=== PATIENT | male | born 1950 | race Caucasian/White ===

== ENCOUNTER 2022-09-04 07:57 | Outpatient (CLI) | payer MEDICARE, SELFPAY ==
[2022-09-04 20:10] LABS: Basophils Percent Auto 0.5 % (0.2-1.2); Eosinophils Absolute Auto 0.1 K/mm3 (0-0.3); Eosinophils Percent Auto 1.5 % (0-4.4); Hematocrit 43.9 % (42.0-52.0); Hemoglobin 14.8 g/dL (14.0-18.0); Immature Granulocyte Absolute 0.02 K/mm3 (0.00-0.031); Immature Granulocyte Percent A 0.3 % (0-0.5); Lymphocytes Absolute Auto 3.22 K/mm3 (0.9-3.2); Lymphocytes Percent Auto 41.4 % (18.3-44.2); Mean Corpuscular HGB Conc 33.7 g/dl (32-36); Mean Corpuscular Hemoglobin 34.2 pg (26-34); Mean Corpuscular Volume 101.4 fl (80-100); Mean Platelet Volume 9.6 fl (7.4-10.4); Monocytes Absolute Auto 0.7 K/mm3 (0.1-0.6); Neutrophils Absolute Auto 3.7 K/mm3 (1.3-6.7); Neutrophils Percent Auto 47.3 % (45.5-73.1); Platelet Count Result 221 k/mm3 (150-375); Red Blood Count 4.33 M/mm3 (4.6-6.20); Red Cell Distribution Width 12.8 % (11.5-14.5); White Blood Count 7.8 K/mm3 (4.5-10.0)
[2022-09-04 20:46] LABS: Alanine Aminotransferase 52 U/L (6-50); Albumin Level 4.4 g/dL (3.5-5.1); Alkaline Phosphatase 57 U/L (38-126); Anion Gap 8 mmol/L (8-16); Aspartate Amino Transferase 50 U/L (17-59); Bilirubin,Total 0.7 mg/dL (0.2-1.3); Blood Urea Nitrogen 17 mg/dL (9-20); Calcium 9.3 mg/dL (8.4-10.2); Carbon Dioxide 29 mmol/L (22-30); Chloride 103 mmol/L (98-107); Cholesterol 189 mg/dL (0-200); Estimated Glomerular Filt Rate > 60; Glucose 120 mg/dL (65-110); HDL Direct 36 mg/dL; Potassium 4.6 mmol/L (3.4-5.0); Sodium 140 mmol/L (137-145); Triglycerides 294 mg/dL (<150); Uric Acid 4.8 mg/dL (3.5-8.5)
[2022-09-04 20:57] LABS: LDL Cholesterol Direct 97 mg/dL
[2022-09-04 21:14] LABS: Prostate Specific Antigen 7.9 ng/mL (< OR = 4.0)
[2022-09-04 22:35] LABS: Hemoglobin A1C 6.4 % (<5.7)
== END 2022-09-04 07:58 | disposition home or self-care (01) ==
LOC: ANHGOSHLAB 07:58
PROVIDERS: PCP Family Medicine; Visit Provider Family Medicine
DX: I25.10 Atherosclerotic heart disease of native coronary artery without angina pectoris (principal); R73.03 Prediabetes; M10.9 Gout, unspecified; Z12.5 Encounter for screening for malignant neoplasm of prostate
CPT/HCPCS: 36415; 80053; 80061; 83036; 84153; 84550; 85025; G0103

== ENCOUNTER 2023-01-14 01:55 | Emergency (ER) | payer MEDICARE, SELFPAY | END 2023-01-14 04:03 | disposition home or self-care (01) | LOC: ANHED 19:02 | PROVIDERS: Emergency Provider Emergency Medicine; PCP Family Medicine | DX: L76.22 Postprocedural hemorrhage of skin and subcutaneous tissue following other procedure (principal); C44.41 Basal cell carcinoma of skin of scalp and neck | CPT/HCPCS: 12001; 99282 ==

== ENCOUNTER → 2023-03-04 10:04 | Outpatient (CLI) | payer MEDICARE, SELFPAY ==
--- NOTE | ~2023-03-04 | XR_ITS ---
Right Knee Technique: AP, lateral, and sunrise views were obtained. Clinical History: Pain Findings: No fracture or dislocation is seen. Osseous alignment is anatomic. Minimal degenerative spu rring noted. Soft tissues are unremarkable. No joint effusion is seen. Impression: Minimal degenerative changes. Reviewed, dictated and finalized at [facility]. Impression: Minimal degenerative changes.
== END ==
PROVIDERS: PCP Family Medicine; Visit Provider Physician Assistant
DX: M25.561 Pain in right knee (principal); M25.562 Pain in left knee
CPT/HCPCS: 73562

== ENCOUNTER 2023-09-03 06:17 | Day surgery (SDC) | payer MEDICARE, SELFPAY ==
[2023-08-13 09:23] VITALS: BMI 37.0
[2023-08-17 13:53] VITALS: BMI 49.1
--- NOTE | 2023-09-02 10:48 | WPDANESEPPF ---
Anes - Initial Pre Proc Eval Procedure: Operation Date: 09/03/23 09:30 Proposed Procedures p Colonoscopy - Rufus Silva MD Date/Time: 09/02/23 10:48 Surgeon: Rufus Silva MD Pre Op Diagnosis: History of Colon Polyps Patient Data Age: 72 Gender: M Height: 1.75 m Weight: 151 kg Allergies Allergy/AdvReac Type Severity Reaction Status Date / Time No Known Allergies Allergy Verified 09/03/23 08:10 Home Medications Medication Instructions Recorded Confirmed Type latanoprost 0.005 % eye drops 1 drop ophthalmic (eye) DAILY 08/18/19 09/03/23 History sildenafil 100 mg tablet 100 mg PO DAILY PRN sexual 09/02/22 09/03/23 Rx activity #90 tabs diclofenac sodium 75 mg 75 mg PO BID PRN pain #60 tabs 03/03/23 09/03/23 Rx tablet,delayed release finasteride 5 mg tablet 5 mg PO DAILY 06/19/23 09/03/23 History losartan 100 mg tablet 100 mg PO DAILY #100 tabs 07/14/23 09/03/23 Rx simvastatin 20 mg tablet (Zocor) 20 mg PO DAILY #90 tabs 07/17/23 09/03/23 Rx sodium,potassium,mag sulfates 17.5 See Rx Instructions PO .COMPLEX 08/13/23 09/03/23 Rx gram-3.13 gram-1.6 gram oral soln #354 mL (Suprep Bowel Prep Kit) amlodipine 5 mg tablet (Norvasc) 5 mg PO DAILY 08/17/23 09/03/23 History colchicine 0.6 mg tablet 0.6 mg PO DAILY 08/17/23 09/03/23 History metformin 500 mg tablet,extended 500 mg PO DAILY 08/17/23 09/03/23 History release 24hr (osmotic) Patient hx anesthesia problems: none Family hx anesthesia problems: none Results Review: All pre-operative results and documents have been reviewed as part of the pre-operative evaluation. FORMERLY [facility], 1928–1983 Past Medical History Medical History Atherosclerosis of [place] coronary artery of [place] heart without angina pectoris ct 10.12.18: dense coronary arteries 1.8.19 stress treadmill normal Cataract Dyslipidemia Hyperglycemia Hypertension, essential, benign Surgical History Surgical History History of removal of skin mole Family History Family History Mother Family history of lung cancer Patient's mother is Diabetes mellitus Father Family history of congestive heart failure Hypertension Sibling Hypertension Other Family history of cardiovascular disease Family history of hypercholesterolemia Social History Social History Smoking status: Never smoker Alcohol intake: current Drinks per week: 3 Substance use type: does not use Lack of Transportation: No Lack of Food: Never True Current Housing: I Have Housing Concerned About Future Housing: No Difficulty Paying Gas/Electric Bills: No Difficulty Paying for Meds: No Currently Unemployed: No Education: Associate Degree Difficulty w/ Childcare or Family Care: No Living arrangements: with family Spiritual care concerns: No Anes - Eval Final PreProcedure Day of Procedure 09/02/23 10:48 Patient weight: obese Heart: regular rate and rhythm Lungs: clear to auscultation Airway: Mallampati scale class II Neurological: alert and oriented Last oral intake: >/= 8 hours ASA classification: III Emergent: no Anesthetic plan: proceed Anesthesia type and monitoring: general GIVS and standard monitoring Results Review: All pre-operative results and documents have been reviewed as part of the pre-operative evaluation. Informed Consent: The patient's anesthetic plan and its attendant risks and benefits were discussed with the patient/family/POA. Questions were solicited and answers provided to the satisfaction of the patient/family/POA.
[2023-09-03 08:11] VITALS: BP 165/93; PULSE 64; RESP 20; TEMP 36.3; O2SAT 98
--- NOTE | 2023-09-03 08:21 | PM.HPGS ---
History of Present Illness History of Present Illness Consent: Risks, benefits, and alternatives have been discussed and questions answered. Patient agrees to proceed with procedure. Chief complaint: History of Colon Polyps Narrative: Porfirio Rizo is a 72 year old male presents for screening colonoscopy. Patient's current weight appetite and bowel movements are normal. Patient denies abdominal pain. He has had no bleeding. Family history is noncontributory. Is found to have a tubular adenoma at time of previous colonoscopy in 2018. Family history noncontributory. Review of Systems Review of Systems: Review of systems noncontributory. [facility] Past Medical History Medical History Atherosclerosis of [place] coronary artery of [place] heart without angina pectoris ct 10.12.18: dense coronary arteries 1.8.19 stress treadmill normal Cataract Dyslipidemia Hyperglycemia Hypertension, essential, benign Surgical History Surgical History History of removal of skin mole Family History Family History Mother Family history of lung cancer Patient's mother is Diabetes mellitus Father Family history of congestive heart failure Hypertension Sibling Hypertension Other Family history of cardiovascular disease Family history of hypercholesterolemia Social History Social History Smoking status: Never smoker Alcohol intake: current Drinks per week: 3 Substance use type: does not use Lack of Transportation: No Lack of Food: Never True Current Housing: I Have Housing Concerned About Future Housing: No Difficulty Paying Gas/Electric Bills: No Difficulty Paying for Meds: No Currently Unemployed: No Education: Associate Degree Difficulty w/ Childcare or Family Care: No Living arrangements: with family Spiritual care concerns: No Meds Home Medications and Allergies Home Medications Medication Instructions Recorded Confirmed Type latanoprost 0.005 % eye drops 1 drop ophthalmic (eye) DAILY 08/18/19 09/03/23 History sildenafil 100 mg tablet 100 mg PO DAILY PRN sexual 09/02/22 09/03/23 Rx activity #90 tabs diclofenac sodium 75 mg 75 mg PO BID PRN pain #60 tabs 03/03/23 09/03/23 Rx tablet,delayed release finasteride 5 mg tablet 5 mg PO DAILY 06/19/23 09/03/23 History losartan 100 mg tablet 100 mg PO DAILY #100 tabs 07/14/23 09/03/23 Rx simvastatin 20 mg tablet (Zocor) 20 mg PO DAILY #90 tabs 07/17/23 09/03/23 Rx sodium,potassium,mag sulfates 17.5 See Rx Instructions PO .COMPLEX 08/13/23 09/03/23 Rx gram-3.13 gram-1.6 gram oral soln #354 mL (Suprep Bowel Prep Kit) amlodipine 5 mg tablet (Norvasc) 5 mg PO DAILY 08/17/23 09/03/23 History colchicine 0.6 mg tablet 0.6 mg PO DAILY 08/17/23 09/03/23 History metformin 500 mg tablet,extended 500 mg PO DAILY 08/17/23 09/03/23 History release 24hr (osmotic) Allergies Allergy/AdvReac Type Severity Reaction Status Date / Time No Known Allergies Allergy Verified 09/03/23 08:10 Vital Signs Vital Signs - 24 hr 09/03/23 08:11 Temperature 97.3 F L Pulse Rate 64 Respiratory Rate 20 Blood Pressure 165/93 H Pulse Oximetry 98 Oxygen Delivery Room Air Exam Narrative: Physical exam reveals patient to be alert. Vital signs stable. HEENT is unremarkable. Patient is anicteric. Lungs are clear to auscultation and percussion heart is without murmur or extra sounds. Abdomen bowel sounds are present soft nontender with no organomegaly. Digital external rectal exam is normal. Assessment and Plan Assessment and plan (1) Personal history of colonic polyps: Code(s): Z86.010 - Personal history of colonic polyps Status: Acute Assessment and Plan: Patient had
[2023-09-03 08:31] LABS: Glucose Point of Care 140 mg/dl (65-105)
[2023-09-03] MEDS: LACTATED RINGERS 1,000 ML 150 ML IV CONT (08:31)
[2023-09-03 09:50] VITALS: BP 127/79; PULSE 66; RESP 16; O2SAT 95
[2023-09-03 10:00] VITALS: BP 137/68; PULSE 63; RESP 16; O2SAT 99
[2023-09-03 10:10] VITALS: BP 134/72; PULSE 63; RESP 16; O2SAT 99
--- NOTE | 2023-09-03 11:35 | WPDANESPN ---
Anes - Prog Note Post-Op Date/Time: 09/03/23 11:35 Cardiovascular status: normal Respiratory status: normal Airway patency: baseline Mental status: baseline Post-Op hydration status: normal Vital Signs: Last Vital Signs Temp 36.3 C L 09/03/23 08:11 Pulse 63 09/03/23 10:10 Resp 16 09/03/23 10:10 BP 134/72 09/03/23 10:10 Pulse Ox 99 09/03/23 10:10 O2 Del Method Room Air 09/03/23 10:10 Pain Score (VAS): 0 I/O: Intake & Output 09/02/23 09/03/23 09/03/23 23:59 07:59 15:59 Intake Total 700 Balance 700 09/03/23 08:28 POC Capillary Glucose 140 H Post-procedural complaints: none Patient Feedback: Patient satisfied with anesthetic care. Other Findings: Patient vital signs back to baseline. Patient denies nausea and vomiting. Patient's pain under control. Patient OK for discharge.
== END 2023-09-03 10:20 | disposition home or self-care (01) ==
PROVIDERS: PCP Family Medicine; Visit Provider Internal Medicine Gastroenterology
PROC: 0DJD8ZZ Inspection of Lower Intestinal Tract, Via Natural or Artificial Opening Endoscopic (ICD-10-PCS; CPT 45378; principal; 2023-09-03 09:30)
DX: Z86.010 Personal history of colon polyps (principal); K64.8 Other hemorrhoids
CPT/HCPCS: 45378

== ENCOUNTER 2023-12-08 10:18 | Outpatient (CLI) | payer MEDICARE, SELFPAY ==
[2023-12-08 13:58] LABS: Basophils Percent Auto 0.5 % (0.2-1.2); Eosinophils Absolute Auto 0.1 K/mm3 (0-0.3); Eosinophils Percent Auto 1.2 % (0-4.4); Hematocrit 42.9 % (42.0-52.0); Hemoglobin 14.6 g/dL (14.0-18.0); Immature Granulocyte Absolute 0.01 K/mm3 (0.00-0.031); Immature Granulocyte Percent A 0.1 % (0-0.5); Lymphocytes Absolute Auto 3.32 K/mm3 (0.9-3.2); Lymphocytes Percent Auto 40.1 % (18.3-44.2); Mean Platelet Volume 9.9 fl (7.4-10.4); Monocytes Absolute Auto 0.8 K/mm3 (0.1-0.6); Monocytes Percent Auto 9.2 % (2.6-8.5); Neutrophils Absolute Auto 4.1 K/mm3 (1.3-6.7); Neutrophils Percent Auto 48.9 % (45.5-73.1); Platelet Count Result 228 k/mm3 (150-375); Red Blood Count 4.29 M/mm3 (4.6-6.20); Red Cell Distribution Width 12.2 % (11.5-14.5); White Blood Count 8.3 K/mm3 (4.5-10.0)
[2023-12-08 14:05] LABS: Alanine Aminotransferase 36 U/L (6-50); Albumin Level 4.9 g/dL (3.5-5.1); Alkaline Phosphatase 52 U/L (38-126); Anion Gap 9 mmol/L (4-12); Aspartate Amino Transferase 64 U/L (17-59); Bilirubin,Total 0.8 mg/dL (0.2-1.3); Blood Urea Nitrogen 17 mg/dL (9-20); Calcium 9.9 mg/dL (8.4-10.2); Carbon Dioxide 25 mmol/L (22-30); Chloride 107 mmol/L (98-107); Cholesterol 182 mg/dL (0-200); Estimated Glomerular Filt Rate > 60; Glucose 114 mg/dL (65-110); HDL Direct 44 mg/dL; Potassium 4.5 mmol/L (3.4-5.0); Sodium 141 mmol/L (137-145); Triglycerides 189 mg/dL (<150); Uric Acid 7.3 mg/dL (3.5-8.5)
[2023-12-08 14:17] LABS: LDL Cholesterol Direct 116 mg/dL
[2023-12-08 14:21] LABS: Creatinine Urine 113.4 mg/dL
[2023-12-08 14:34] LABS: MALB Creatinine Ratio 12.9 mg/g (0-30); Microalbumin Urine Random 14.6 mg/L (0-16.7)
[2023-12-08 15:11] LABS: Folic Acid > 20.0 ng/mL (2.76->20)
[2023-12-08 15:24] LABS: Hemoglobin A1C 6.4 % (<5.7)
[2023-12-08 15:26] LABS: Hepatitis C Virus Antibody Negative (Negative)
== END 2023-12-08 10:19 | disposition home or self-care (01) ==
PROVIDERS: PCP Family Medicine; Visit Provider Physician Assistant
DX: E78.2 Mixed hyperlipidemia (principal); I10 Essential (primary) hypertension; M10.9 Gout, unspecified; E88.810 Metabolic syndrome; E66.9 Obesity, unspecified; Z79.899 Other long term (current) drug therapy; Z11.59 Encounter for screening for other viral diseases
CPT/HCPCS: 36415; 80053; 80061; 82043; 82607; 82746; 83036; 84443; 84550; 85025; 86803

== ENCOUNTER 2025-02-02 08:12 | Outpatient (CLI) | payer MEDICARE, SELFPAY ==
--- OUTSIDE RECORDS SUMMARY | 2025-02-02 08:16 | XMS_ITS | Continuity of Care Document ---
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 Location Location Details Encounter Type Encounter Number Reason For Visit Attending Provider ADM Date DC Date Status Disposition Source [facility] Outpatient Encounter [id number] 06/[address] [facility] Outpatient Encounter [id number] ROE VALLECILLON 08/[address] [facility] Outpatient Encounter [id number] 08/05 [facility] Outpatient Encounter [id number] 08/07 [facility]
[2025-02-02 13:04] LABS: Alanine Aminotransferase 40 U/L (6-50); Albumin Level 4.7 g/dL (3.5-5.1); Alkaline Phosphatase 39 U/L (38-126); Anion Gap 10 mmol/L (4-12); Aspartate Amino Transferase 56 U/L (17-59); Bilirubin,Total 0.7 mg/dL (0.2-1.3); Blood Urea Nitrogen 20 mg/dL (9-20); Calcium 9.8 mg/dL (8.4-10.2); Carbon Dioxide 28 mmol/L (22-30); Chloride 103 mmol/L (98-107); Cholesterol 189 mg/dL (0-200); Estimated Glomerular Filt Rate > 60; Glucose 141 mg/dL (65-110); HDL Direct 39 mg/dL; Potassium 5.0 mmol/L (3.4-5.0); Sodium 141 mmol/L (137-145); Total Protein 8.1 g/dL (6.3-8.2); Triglycerides 254 mg/dL (<150)
[2025-02-02 13:36] LABS: Prostate Specific Antigen 1.7 ng/mL (< OR = 4.0)
[2025-02-02 13:41] LABS: MALB Creatinine Ratio 11.4 mg/g (0-30)
[2025-02-02 13:55] LABS: Vitamin B12 398.0 pg/mL (239-931)
[2025-02-02 14:29] LABS: Hemoglobin A1C 6.6 % (<5.7)
== END 2025-02-02 08:13 | disposition home or self-care (01) ==
PROVIDERS: PCP Family Medicine; Visit Provider Family Medicine
DX: Z12.5 Encounter for screening for malignant neoplasm of prostate (principal); E11.42 Type 2 diabetes mellitus with diabetic polyneuropathy
CPT/HCPCS: 36415; 80053; 80061; 82043; 82607; 83036; 84153; G0103

== ENCOUNTER 2025-02-20 14:15 | Outpatient (CLI) | payer MEDICARE, SELFPAY ==
--- OUTSIDE RECORDS SUMMARY | 2025-02-20 14:18 | XMS_ITS | Continuity of Care Document ---
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 Location Location Details Encounter Type Encounter Number Reason For Visit Attending Provider ADM Date DC Date Status Disposition Source [facility] Outpatient Encounter [id number] 06/01 [facility] Outpatient Encounter [id number] ROE VALLECILLON 08/05 [facility] Outpatient Encounter [id number] 08/05 [facility] Outpatient Encounter [id number] 08/07 [facility]
--- NOTE | 2025-02-20 15:00 | NEURO_ITS ---
Impression: # Complains of right hand numbness. Borderline diabetic. ? # Right Carpal Tunnel Syndrome. ? # Right ulnar neuropathy across the elbow. ? # Mildly abnormal Needle/EMG exam. ? # Only right extremity tested per patient request. Nerve Conduction Studies ?Stim Site NR Peak (ms) P-T Amp (?V) Site1 Site2 Delta-P (ms) Dist (cm) Sen (m/s) Right Median Anti Sensory (2-3nd Digit) Wrist ? 4.6 9.2 Wrist 2-3nd Digit 4.6 14.0 30 Wrist ? 4.3 16.1 Wrist 2-3nd Digit 4.6 14.0 30 Right Radial Anti Sensory (Base 1st Digit) Wrist ? 2.3 14.7 Wrist Base 1st Digit 2.3 0.0 Right Ulnar Anti Sensory (5th Digit) Wrist ? 2.5 22.9 Wrist 5th Digit 2.5 14.0 56 ?Stim Site NR Onset (ms) O-P Amp (mV) Site1 Site2 Delta-0 (ms) Dist (cm) Sen (m/s) Right Median Motor (Abd Poll Brev) Wrist ? 4.4 2.8 Elbow Wrist 5.7 31.0 54 Elbow ? 10.1 2.6 Right Ulnar Motor (Abd Dig Minimi) Wrist ? 2.7 6.0 A Elbow Wrist 7.2 33.0 46 A Elbow ? 9.9 4.7 B Elbow Wrist 5.0 26.0 52 B Elbow ? 7.7 4.7 Electromyography ?Side Muscle Nerve Root Ins Act Fibs Amp Dur Recrt Comment Right 1stDorInt Ulnar C8-T1 Nml Nml Decr >12ms +1 Right Ext Indicis Radial (Post Int) C7-8 Nml Nml Nml Nml Nml Right Ext Digitorum Radial (Post Int) C7-8 Nml Nml Nml Nml Nml Right BrachioRad Radial C5-6 Nml Nml Nml Nml Nml Right PronatorTeres Median C6-7 Nml Nml Nml Nml Nml Right Abd Poll Brev Median C8-T1 Nml Nml Decr >12ms +1 Right ABD Dig Min Ulnar C8-T1 Nml Nml Decr >12ms +1 Right FlexPolLong Median (Ant Int) C7-8 Nml Nml Nml Nml Nml Right Abd Poll Long Radial (Post Int) C7-8 Nml Nml Nml Nml Nml
== END 2025-02-20 14:16 | disposition home or self-care (01) ==
PROVIDERS: PCP Family Medicine; Visit Provider Plastic Surgery
DX: R20.0 Anesthesia of skin (principal); G56.01 Carpal tunnel syndrome, right upper limb; G56.21 Lesion of ulnar nerve, right upper limb
CPT/HCPCS: 95886; 95909

== ENCOUNTER 2025-05-11 10:13 | Outpatient (CLI) | payer MEDICARE, SELFPAY ==
--- NOTE | 2025-05-11 10:29 | ECG_ITS ---
Test Date: 2025-05-11 10:46:34 Measurements Intervals [place] Rate: 69 P: 54 VT: 198 QRS: -4 QRSD: 104 T: 7 QT: 392 QTc: 423 Interpretive Statements SINUS RHYTHM CANNOT R/O SEPTAL INFARCT, AGE INDETERMINATE CONSIDER INFERIOR INFARCT, AGE INDETERMINATE BASELINE ARTIFACT- II, AVL, AVF, V1, V3 ABNORMAL ECG No previous ECG available for comparison Electronically Signed On 05-11-2025 11:10:12 CDT by [place] Tony D.O.
[2025-05-11 11:17] LABS: Anion Gap 11 mmol/L (4-12); Blood Urea Nitrogen 15 mg/dL (9-20); Calcium 9.2 mg/dL (8.4-10.2); Carbon Dioxide 25 mmol/L (22-30); Chloride 101 mmol/L (98-107); Estimated Glomerular Filt Rate > 60; Glucose 152 mg/dL (65-110); Potassium 4.3 mmol/L (3.4-5.0); Sodium 137 mmol/L (137-145)
== END 2025-05-11 10:14 | disposition home or self-care (01) ==
PROVIDERS: PCP Family Medicine; Visit Provider Anesthesiology
DX: E11.9 Type 2 diabetes mellitus without complications (principal); Z01.818 Encounter for other preprocedural examination; I10 Essential (primary) hypertension; E78.2 Mixed hyperlipidemia
CPT/HCPCS: 36415; 80048; 93005